=== PATIENT | female | born 1975 | race Caucasian/White ===

== ENCOUNTER 2018-09-26 15:55 | Emergency (ER) | payer OTHER ==
[2018-09-26] MEDS ORDERED: BENADRYL 50 MG/ML IM ONE (18:00)
[2018-09-26] MEDS ORDERED: DELTASONE 20 MG PO ONE (18:01)
--- NOTE | 2018-09-26 18:02 | ERPHSYRPT ---
- History of Present Illness Time Seen by Provider: 09/26/18 17:30 Source: patient Exam Limitations: clinical condition Patient Subjective Stated Complaint: CIRCULAR RASH X 2 DAYS. ON ARMS LEGS AND TRUNK.. ITCHY AND IRRITATED. NO FEVER..ALSO STATES HE HIPS HURT BECAUSE SHE STANDS AT WORK. NO INJURY Triage Nursing Assessment: ALERT AND IN NO DISTRESS. CIRCULAR RASH ON ARMS, TRUNK AND LEGS SPREADING X 2 DAYS. DENIES SOB. ITCHING AND IRRITATED. ALSO STATES SHE HAS BILATERAL HIP PAIN DUE TO STANDING AT WORK. NO INJURY.. ABLE TO WALK WITH NO DIFFICULTY Physician History: PATIENT COMPLAINS OF RASH OVER LOWER LEGS X 2 WEEKS NOW HAS SPREAD TO UPPER ARMS AND TRUNK SINCE LAST NIGHT ASSOCIATED WITH GENERALIZED ITCHING. Timing/Duration: week(s) Quality: burning Severity: moderate Location: extremities, generalized Possible Causes: no cause identified Associated Symptoms: change in skin texture Immunizations Up to Date: (UNKNOWN) - Review of Systems Constitutional: No Fever, No Chills Eyes: No Symptoms Ears, Nose, & Throat: No Symptoms Respiratory: No Symptoms, No Cough, No Dyspnea Cardiac: No Chest Pain, No Edema, No Syncope Abdominal/Gastrointestinal: No Abdominal Pain, No Nausea, No Vomiting, No Diarrhea Genitourinary Symptoms: No Dysuria Musculoskeletal: No Back Pain, No Neck Pain Skin: Pruritis, Skin Lesions, No Rash Neurological: No Dizziness, No Focal Weakness, No Sensory Changes Psychological: No Symptoms Endocrine: No Symptoms All Other Systems: Reviewed and Negative - Past Medical History Pertinent Past Medical History: No - Past Surgical History Past Surgical History: Yes Gastrointestinal: Appendectomy, Cholecystectomy Female Surgical History: Hysterectomy - Social History Smoking Status: Current every day smoker Exposure to second hand smoke: No Drug Use: none Patient Lives Alone: No - Female History Hx Now: No - Nursing Vital Signs Nursing Vital Signs: Initial Vital Signs Temperature 97.5 F 09/26/18 17:01 Pulse Rate 63 09/26/18 17:01 Respiratory Rate 18 09/26/18 17:01 Blood Pressure 113/76 09/26/18 17:01 O2 Sat by Pulse Oximetry 97 09/26/18 17:01 Pain Scale Pain Intensity 3 - Physical Exam General Appearance: no apparent distress, alert Eye Exam: PERRL/EOMI, eyes nml inspection Ears, Nose, Throat Exam: normal ENT inspection, pharynx normal, moist mucous membranes Neck Exam: normal inspection, non-tender, supple, full range of motion Respiratory Exam: normal breath sounds, lungs clear, No respiratory distress Cardiovascular Exam: regular rate/rhythm, normal heart sounds Gastrointestinal/Abdomen Exam: soft, normal bowel sounds, mass, No tenderness Back Exam: normal inspection, normal range of motion, No CVA tenderness, No vertebral tenderness Extremity Exam: normal inspection, normal range of motion Neurologic Exam: alert, oriented x 3, cooperative, normal mood/affect, sensation nml, No motor deficits Skin Exam: warm, dry, other (GENERALIZED ERYTHRMATOUS NONRAISED LESIONS) SpO2: 97 Ordered Tests: Medication Summary Discontinued Medications Generic Name Dose Route Start Last Admin Trade Name Freq PRN Reason Stop Dose Admin Diphenhydramine HCl 50 mg 09/26/18 18:00 09/26/18 18:08 Benadryl 50 Mg/Ml IM 09/26/18 18:01 50 mg STAT ONE Administration Diphenhydramine HCl Confirm 09/26/18 18:05 Benadryl 50 Mg/Ml Administered 09/26/18 18:06 Dose 50 mg .ROUTE .STK-MED ONE Prednisone 60 mg 09/26/18 18:01 09/26/18 18:09 Deltasone 20 Mg PO 09/26/18 18:02 60 mg STAT ONE Administration Prednisone Confirm 09/26/18 18:05 Deltasone 20 Mg Administered 09/26/18 18:06 Dose 60 mg .ROUTE .STK-MED ONE - Progress Progress Note: 09/26/18 18:38 PREDNISONE 60MG ORALLY, BENADRL 50MG IM Counseled pt/family regarding: diagnosis, need for follow-up - Departure Time of Disposition: 18:45 Departure Disposition: Home Clinical Impression: CONTACT DERMATITIS Condition: Stable Critical Care Time: No Referrals: DOCTOR,NO FAMILY [Primary Care Provider] - Additional Instructions: TAKE OVER THE COUNTER BENADRYL 50MG EVERY 4 HOURS FOR ITCHING. PREDNISONE 20MG , 2 TABLETS DAILY FOR 5 DAYS. FOLLOWUP WITH A FAMILY PHYSICIAN OR APPLIED STATISTICIAN IN 3-5 DAYS FOR EVALUATION. Prescriptions: Prednisone 20 mg [Deltasone 20 mg] 2 tab PO DAILY #10 tablet
[2018-09-26] MEDS ORDERED: DELTASONE 20 MG ONE (18:05)
[2018-09-26] MEDS ORDERED: BENADRYL 50 MG/ML ONE (18:05)
[2018-09-26 18:12] VITALS: BP 109/70
[2018-09-26 18:51] VITALS: PULSE 71; O2SAT 98
== END 2018-09-26 18:47 | disposition home or self-care (01) ==
LOC: ED 15:55
DX: L25.9 Unspecified contact dermatitis, unspecified cause (principal)
CPT/HCPCS: 96372; 99283; J1200; A9270-GY